=== PATIENT | female | born 1955 | race Caucasian/White ===

== ENCOUNTER 2018-08-03 13:39 | Emergency (ER) | payer MEDICARE, MEDICAID ==
[~2018-08-03] VITALS: Ht 177.8 cm; Wt 54.0 kg
[2018-08-03 14:25] LABS: BASOPHILS % (AUTO) 0.2 % (0-1); EOSINOPHILS % (AUTO) 0.1 % (0-6); HEMATOCRIT 40.7 % (35.0-45.0); HEMOGLOBIN 13.6 g/dl (12.0-16.0); LYMPHOCYTES # (AUTO) 0.6 X10'3 (1.1-4.8); LYMPHOCYTES % (AUTO) 4.3 % (21-51); MEAN CORPUSCULAR HEMOGLOBIN 31.2 PG (27.0-31.0); MEAN CORPUSCULAR HGB CONC 33.3 % (33.0-36.5); MEAN CORPUSCULAR VOLUME 93.7 FL (78-98); MEAN PLATELET VOLUME 10.7 FL (7.4-10.4); MONOCYTES # (AUTO) 0.1 X10'3 (0-0.9); MONOCYTES % (AUTO) 0.9 % (2-12); NEUTROPHILS # (AUTO) 12.8 X10'3 (1.8-7.7); NEUTROPHILS % (AUTO) 94.5 % (42-75); PLATELET COUNT 254 X10'3 (140-440); RED BLOOD COUNT 4.34 X10'6 (4.20-5.60); RED CELL DISTRIBUTION WIDTH 13.7 % (11.5-14.5); WHITE BLOOD COUNT 13.5 X10'3 (4.5-11.0)
[2018-08-03 14:37] LABS: PROTHROMBIN TIME 10.6 SECONDS (9.0-12.0)
[2018-08-03 14:40] LABS: ALANINE AMINOTRANSFERASE 31 U/L (12-78); ALBUMIN 3.9 G/DL (3.4-5.0); ALKALINE PHOSPHATASE 69 IU/L (46-116); ANION GAP 15 (8-16); ASPARTATE AMINO TRANSFERASE 24 U/L (10-37); BILIRUBIN,TOTAL 0.6 MG/DL (0.1-1.0); BLOOD UREA NITROGEN 18 MG/DL (7-18); BUN/CREATININE RATIO 22.2 (6.6-38.0); CALCIUM 9.7 MG/DL (8.5-10.1); CHLORIDE 99 MMOL/L (99-107); CREATININE 0.81 MG/DL (0.40-0.90); GLUCOSE 141 MG/DL (70-104); POTASSIUM 3.5 MMOL/L (3.5-5.1); SODIUM 138 MMOL/L (135-145); TOTAL CARBON DIOXIDE 23.7 MMOL/L (24-32); TOTAL PROTEIN 7.8 G/DL (6.4-8.2); eGFR 71 ML/MIN
[2018-08-03] MEDS ORDERED: proCHLORperazine 10 MG/2 ml inj IV ONE (15:00)
[2018-08-03] MEDS ORDERED: normal saline 1000ML IV soln IVB ONE (15:00)
--- NOTE | 2018-08-03 15:12 | NUR ---
Note myra in EDM - 08/03/18 at 1625 by SOSA Pt requesting something else for nausea. Pt was able to take morphine orally without emesis but reports feeling too nauseated. Reported to CHARI Sorensen and received VO for Benadryl 25mg IV x 1 now.
--- NOTE | 2018-08-03 15:55 | NUR ---
Pt has not given urine sample, reported to provider Oppe[facility] and pt not required to give UA for discharge.
--- NOTE | 2018-08-03 16:12 | NUR ---
Pt requesting something else for nausea. Pt was able to take morphine orally without emesis but reports feeling too nauseated. Reported to CHARI Sorensen and received VO for Benadryl 25mg IV x 1 now.
[2018-08-03] MEDS ORDERED: diphenhydrAMINE 50 mg/ml inj IV ONE (16:20)
[2018-08-03 17:09] LABS: CLARITY,URINE CLEAR (Clear); COLOR,URINE YELLOW (Yellow); GLUCOSE, URINE NEGATIVE (Neg); KETONES,URINE 40 mg/dl (Neg); LEUKOCYTE ESTERASE ,URINE NEGATIVE (Neg); NITRITES, URINE NEGATIVE (Neg); OCCULT BLOOD,URINE SMALL (Neg); PH,URINE 7.5 (4.8-8.0); PROTEIN,URINE NEGATIVE (Neg); UA COLLECTION TYPE NON-SPECIFIED; UROBILINOGEN,URINE 0.2 E.U/dL (0.2-1.0)
[2018-08-03 17:10] VITALS: BP 160/84
[2018-08-03 17:14] LABS: BACTERIA,URINE NONE SEEN /HPF (Neg); MUCUS STRANDS NONE SEEN /LPF (Neg); RBC,URINE 0-2 /HPF (0-2); SQUAMOUS EPITHELIAL CELL,UR FEW /LPF (FEW); WBC,URINE NONE SEEN /HPF (0-4)
[2018-08-03] MEDS ORDERED: metoclopramide 5 mg/ml inj IV ONE (18:15)
== END 2018-08-03 18:26 | disposition home or self-care (01) ==
LOC: ER 13:41
DX: R11.10 Vomiting, unspecified (principal); R10.13 Epigastric pain; G89.29 Other chronic pain; Z88.5 Allergy status to narcotic agent
CPT/HCPCS: 36415; 80053; 81001; 85025; 85610; 93005; 96361; 96374; 96375; 99284; J0780; J1200; J2765; J7030